=== PATIENT | female | born 1945 | race Caucasian/White ===

== ENCOUNTER 2019-01-18 08:10 | Emergency (ER) | payer MEDICARE ==
[~2019-01-18] VITALS: Ht 165.1 cm; Wt 63.9 kg
[~2019-01-18 08:10] MED LIST: LEVOTHYROXIN125 MCG PO; ROPINIROLE0.5 MG PO
[2019-01-18 09:03] LABS: HEMATOCRIT 38.9 % (37.0-47.0); HEMOGLOBIN 12.6 g/dl (12.0-16.0); IMMATURE GRANULOCYTES 0.3 % (0.0-5.0); MEAN CELL VOLUME 92.6 fL CALC (80.0-100.0); MEAN CORPUSCULAR HGB CONC 32.4 g/L CALC (32.0-36.0); NEUT# 2.82 thou/uL (2.00-7.15); RED BLOOD COUNT 4.2 mill/uL (4.20-5.60); RED CELL DISTRI WIDTH 13.5 % (11.5-15.5)
[2019-01-18 09:13] LABS: ALBUMIN 4.3 g/dL (3.2-5.0); ALKALINE PHOSPHATASE 73 u/l (38-126); ANION GAP 12 (6-22 (CALC)); BILIRUBIN, TOTAL 0.5 mg/dL (0.0-1.4); BUN 15 mg/dL (8-23); BUN/CREATININE RATIO 29 (12-20 (CALC)); CARBON DIOXIDE 26 mmol/l (22-30); CHLORIDE 108 mmol/l (95-108); CREATININE 0.5 mg/dL (0.5-1.0); GFR > 60 ML/MIN (>=60 (CALC)); GFR FOR AFR.AMER. > 60 ML/MIN (>=60 (CALC)); POTASSIUM 3.9 mmol/l (3.5-5.1); SGOT/AST 27 u/l (9-36); SODIUM 142 mmol/l (137-146); TOTAL PROTEIN 7.5 g/dL (6.3-8.2)
[2019-01-18 09:25] LABS: MYOGLOBIN 24 ng/mL (0 - 62)
[2019-01-18 09:50] LABS: URINE BILIRUBIN - DIPSTICK NEGATIVE (NEGATIVE); URINE BLOOD DIPSTICK TRACE-INTACT (NEGATIVE); URINE COLOR YELLOW; URINE GLUCOSE - DIPSTICK NEGATIVE (NEGATIVE); URINE KETONE NEGATIVE (NEGATIVE); URINE PROTEIN - DIPSTICK NEGATIVE (NEG-TRACE); URINE UROBILINOGEN - DIPSTICK 0.2 E.U./dL (0.2)
[2019-01-18 09:51] LABS: URINE LEUK ESTERASE MODERATE (NEGATIVE); URINE NITRITE - DIPSTICK POSITIVE (Negative)
[2019-01-18 09:52] LABS: URINE RBC 0-2 RBC/hpf (0-5)
[2019-01-18 09:53] LABS: URINE BACTERIA MANY hpf; URINE EPITHELIAL CELLS MODERATE EPI/hpf (0-FEW); URINE WBC 20-50 WBC/hpf (0-5)
[2019-01-18] MEDS ORDERED: ROBITUSSIN AC10 ML PO (10:19)
[2019-01-18] MEDS ORDERED: AMOXICILLIN500 MG PO (10:19)
[2019-01-18] MEDS ORDERED: BACTRIM DS1 TAB PO (10:19)
[2019-01-18] MEDS ORDERED: FIORICET PO (10:47)
[2019-01-18 11:37] VITALS: BP 146/68
== END 2019-01-18 11:37 | disposition home or self-care (01) ==
LOC: ED 08:10
PROVIDERS: Emergency Medicine
DX: N39.0 Urinary tract infection, site not specified (principal); J02.0 Streptococcal pharyngitis; R51 Headache; I10 Essential (primary) hypertension; G40.909 Epilepsy, unspecified, not intractable, without status epilepticus; B96.1 Klebsiella pneumoniae [K. pneumoniae] as the cause of diseases classified elsewhere; Z86.73 Personal history of transient ischemic attack (TIA), and cerebral infarction without residual deficits
CPT/HCPCS: J0131